=== PATIENT | female | born 1975 | race Caucasian/White ===

== ENCOUNTER 2017-10-08 23:37 | Emergency (ER) | payer BC ==
[2017-10-08] MEDS ORDERED: 0.9 % SODIUM CHLORIDE 1000ML 1,000 ML IV SCH (23:45)
[2017-10-08] MEDS ORDERED: HYOSCYAMINE SULFATE ODT 0.125 MG TAB.SUBL SL ONE (23:48)
[2017-10-08] MEDS ORDERED: ONDANSETRON HCL IV 4 MG/2 ML VIAL IVP ONE (23:48)
--- NOTE | 2017-10-09 | Emergency Department Record ---
History of Present Illness - General Chief complaint: Nausea, Vomiting, Diarrhea Stated complaint: DIARRHEA,VOMITING Time Seen by Provider: 10/08/17 23:47 Source: Patient Mode of Arrival: Ambulatory Limitations: No limitations - History of Present Illness Initial comments: 42 yo female presents to ED for evaluation of nausea and loose stools for the past 15 hours. Patient denies fevers/chills or cough symptoms, reports abdominal "cramping" symptoms. Patient reports a history of GERD, report that her epigastric cramping symptoms are similar to previous episodes of GERD. Patient denies other health problems, report history of hysterectomy and tubal ligation previously. 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 MD complaint: Abdominal pain, Nausea Onset/Timin -: Hour(s) Description of Vomiting: Other Description of Diarrhea: Water Associated Abdominal Pain: Yes Location: Epigastric Radiation: Back Severity scale (1-10): 7 Quality: Cramping Consistency: Constant Associated Symptoms: Headaches, Nausea/vomiting - Related Data Previous Rx's Medication Instructions Recorded Hyoscyamine Sulfate [Levsin-Sl] 0.25 mg SL Q8H PRN #15 tab.subl 10/09/17 Ondansetron [Zofran Odt] 4 mg PO Q8H PRN #15 tab.rapdis 10/09/17 Allergies Allergy/AdvReac Type Severity Reaction Status Date / Time promethazine HCl Allergy MUSCLE PAIN Verified 10/08/17 23:40 [From Phenergan] Travel Screening - Travel/Exposure Within Last 30 Days Have you traveled within the last 30 days?: No - Travel Symptoms Symptom Screening: None Review of Systems Constitutional: Denies: Chills, Fever, Malaise, Night sweats Eyes: Denies: Eye discharge, Eye pain ENT: Denies: Congestion, Ear pain Respiratory: Denies: Cough, Dyspnea Cardiovascular: Denies: Chest pain, Dyspnea on exertion Endocrine: Denies: Fatigue, Heat or cold intolerance Gastrointestinal: Reports: Abdominal pain, Diarrhea, Nausea. Denies: Vomiting Genitourinary: Denies: Incontinence, Retention Musculoskeletal: Denies: Arthralgia, Back pain Skin: Denies: Bruising, Change in color Neurological: Denies: Abnormal gait, Confusion, Headache, Seizure Psychiatric: Denies: Anxiety Hematological/Lymphatic: Denies: Anemia, Blood Clots Past Medical History - SOCIAL HISTORY Smoking Status: Never smoker - RESPIRATORY Hx Respiratory Disorders: No - CARDIOVASCULAR Hx Cardio Disorders: No Hx Chest Pain: Yes - NEURO Hx Neuro Disorders: Yes Hx Headaches: Yes - GI Hx GI Disorders: Yes Hx Reflux: Yes Comment:: Gastroporesis - Hx Genitourinary Disorders: No - ENDOCRINE Hx Endocrine Disorders: No - MUSCULOSKELETAL Hx Musculoskeletal Disorders: No - PSYCH Hx Psych Problems: Yes Hx Depression: Yes - HEMATOLOGY/ONCOLOGY Hx Hematology/Oncology Disorders: No Family Medical History Any Significant Family History?: Yes Hx Cancer: Grandparents Hx Diabetes: Grandparents Hx Heart Disease: Father Hx Resp Disorders: Mother Physical Exam - General General Appearance: Alert, Oriented x3, Cooperative, Moderate distress Limitations: No limitations - Head Head exam: Atraumatic, Normocephalic, Normal inspection Head exam detail: negative: Abrasion, Contusion, Ling's sign, General tenderness, Hematoma, Laceration - Eye Eye exam: Normal appearance. negative: Conjunctival injection, Periorbital swelling, Periorbital tenderness, Scleral icterus - ENT Ear exam: negative: Auricular hematoma, Auricular trauma Nasal Exam: negative: Active bleeding, Discharge, Dried blood, Foreign body Mouth exam: negative: Drooling, Laceration, Muffled voice, Tongue elevation - Neck Neck exam: Normal inspection. negative: Meningismus, Tenderness - Respiratory Respiratory exam: Normal lung sounds bilaterally. negative: Rales, Respiratory distress, Rhonchi, Stridor - Cardiovascular Cardiovascular Exam: Regular rate, Normal rhythm, Normal heart sounds - GI/Abdominal GI/Abdominal exam: Soft, Tenderness (Moderate TTP epigastric region, no rebound or guarding symptoms are present). negative: Rebound, Rigid - Rectal Rectal exam: Deferred - exam: Deferred - Extremities Extremities exam: Normal inspection. negative: Calf tenderness, Pedal edema, Tenderness - Back Back exam: Denies: CVA tenderness (R), CVA tenderness (L) - Neurological Neurological exam: Alert, Normal gait, Oriented X3 - Psychiatric Psychiatric exam: Normal affect, Normal mood - Skin Skin exam: Normal color. negative: Abrasion Type of lesion: negative: abrasion Course Vital Signs 10/08/17 23:43 Temperature 97.9 F Pulse Rate [ 87 Pulse Ox Probe] Respiratory 16 Rate Blood Pressure 116/74 [Left Arm] Pulse Ox 99 - Reevaluation(s) Reevaluation #1: 10/09/17 00:22 Labs reviewed, WBC 13.8, mild elevation Lipase. Labs are otherwise grossly unremarkable for an acute process. Reevaluation #2: 10/09/17 02:14 Patient was reassessed, reports that her symptoms are improving. Repeat abdominal examination is benign, and CT imaging does not appear indicated as there is no evidence for a surgical process on examination. Loose stools are likely the result of a virus, and will likely improve3 over the next 12-24 hours. Will discharge on Levsin in addition to the Zofran that she has at home. Medical Decision Making - Lab Data Result diagrams: 10/08/17 23:51 10/08/17 23:51 Disposition Disposition: Discharge Clinical Impression: Nausea vomiting and diarrhea Disposition: Home, Self-Care Condition: (2) Stable Instructions: Acute Diarrhea (ED) Additional Instructions: Return to ED if your symptoms worsen or if you have any concerns. Levsin and Zofran as directed. Follow-up with your family doctor in 3-5 days as directed. Prescriptions: Hyoscyamine Sulfate [Levsin-Sl] 0.25 mg SL Q8H PRN #15 tab.subl PRN Reason: Abdominal Pain Ondansetron [Zofran Odt] 4 mg PO Q8H PRN #15 tab.rapdis PRN Reason: Nausea/Vomiting Forms: Patient Portal Access Time of Disposition: 02:16 Quality - Quality Measures Quality Measures: N/A - Blood Pressure Screening Does Patient Have Any of the Following: No Blood Pressure Classification: Normal BP Reading Systolic Measurement: 99 Diastolic Measurement: 66 Screening for High Blood Pressure: < Normal BP, F/U Not Required > [G8783]
[2017-10-09 00:02] LABS: BASO % 0.2 % (0-6); EOS % 2.5 % (0-6); GRAN % 73.9 % (47-80); HEMATOCRIT 46.3 % (35.0-47.0); HEMOGLOBIN 15.3 gm/dl (11.6-16.0); LYMPH % 15.3 % (16-45); MEAN CELL VOLUME 84.8 fl (81-97); MEAN PLATELET VOLUME 9.8 fl (7.4-10.4); MONO % 8.1 % (0-9); PLATELET COUNT 297 K/uL (130-400); RED BLOOD COUNT 5.46 M/uL (3.80-5.40); RED CELL DISTRIBUTION WIDTH 14.1 % (11.5-14.5); WHITE BLOOD COUNT W/O DIFF 13.8 K/uL (4.2-12.2)
[2017-10-09 00:13] LABS: BLOOD UREA NITROGEN 12 mg/dL (6-20); CREATININE 0.8 mg/dL (0.5-0.9); EST GLOMERULAR FILTRATION RATE > 60 mL/min
[2017-10-09 00:14] LABS: TOTAL PROTEIN 7.4 g/dL (6.6-8.7)
[2017-10-09 00:16] LABS: GLUCOSE,RANDOM 102 mg/dL (74-109)
[2017-10-09 00:18] LABS: ALB/GLOB RATIO 1.7 (1.1-1.8); ALBUMIN 4.7 g/dL (4.0-5.0); ALKALINE PHOSPHATASE 64 U/L (35-104); ALT/SGPT 15 U/L (<33); AST/SGOT 14 U/L (10.0-35.0)
[2017-10-09 00:19] LABS: LIPASE 63 U/L (13-60)
[2017-10-09] MEDS ORDERED: MAGNESIUM HYDROXIDE/AL HYDROX 30 ML, LIDOCAINE VISC 2% 200 MG PO ONE ×2 (00:23)
[2017-10-09] MEDS ORDERED: 0.9 % SODIUM CHLORIDE 1000ML 1,000 ML IV SCH (00:30)
[2017-10-09 00:50] LABS: URINE APPEARANCE CLEAR; URINE BILIRUBIN NEGATIVE (NEGATIVE); URINE BLOOD TRACE-I (NEGATIVE); URINE COLOR YELLOW; URINE GLUCOSE (UA) NEGATIVE (NEGATIVE); URINE KETONE NEGATIVE (NEGATIVE); URINE LEUKOCYTE ESTERASE NEGATIVE (NEGATIVE); URINE NITRITE NEGATIVE (NEGATIVE); URINE PROTEIN NEGATIVE (NEGATIVE); URINE UROBILINOGEN 0.2 E.U./dL (0.20 - 1.00)
[2017-10-09 00:51] LABS: URINE BACTERIA NONE SEEN; URINE EPITHELIAL CELLS 0 - 2 (FEW); URINE RBC 0 - 2 (NONE SEEN); URINE WBC 0 - 2 (0-2/hpf)
[2017-10-09 00:52] LABS: HCG,QUALITATIVE URINE NEGATIVE (NEGATIVE)
[2017-10-09] MEDS ORDERED: PROMETHAZINE HCL 12.5 MG in 0.9 % SODIUM CHLORIDE 100ML 100 ML IVPB ONE (01:32)
[2017-10-09] MEDS ORDERED: DIPHENHYDRAMINE HCL IV 50 MG/ML VIAL IVP ONE (01:32)
[2017-10-09] MEDS ORDERED: 0.9 % SODIUM CHLORIDE 1000ML 500 ML IV SCH (01:45)
== END 2017-10-09 02:29 | disposition home or self-care (01) ==
LOC: ER 23:37
DX: R11.2 Nausea with vomiting, unspecified (principal); R19.7 Diarrhea, unspecified; R10.13 Epigastric pain; R51 Headache
CPT/HCPCS: 99284 ×2; 96365; 96375; 96361; 83690; 85025; 80053; 81001; 81025; J1980; J2405; J1200; J2550; J7030